=== PATIENT | female | born 1980 | race Caucasian/White ===

== ENCOUNTER 2017-11-15 08:23 | Emergency (ER) | payer BC ==
[2017-11-15 08:54] VITALS: BP 96/58
--- NOTE | 2017-11-15 09:20 | ED ---
HPI Cardiac - HPI Summary HPI Summary: 37 yr old female with the complaint of runny nose and sinus congestion for several days. At 430 am this morning she had nausea without vomiting. She got up this morning and through this morning has experienced the feeling of heaviness in the chest, sob. She denies having much of a cough. She says she aches all over. She denies smoking, denies past history, denies fever, chills, denies family history of any heart or lung issues. Denies travel recently. Denies swelling or pain in legs. - History of Current Complaint Chief Complaint: UCRespiratory Stated Complaint: BODY ACHES, HEAVY CHEST Time Seen by Provider: 11/15/17 09:08 Hx Last Menstrual Period: DOES NOT HAVE REG PERIODS- HAS MIRENA Pain Intensity: 7 - Allergy/Home Medications Allergies/Adverse Reactions: Allergies Allergy/AdvReac Type Severity Reaction Status Date / Time bacitracin Allergy Hives Verified 11/15/17 08:57 [From Neosporin ([id number])] cefaclor [From Ceclor] Allergy Hives Verified 11/15/17 08:58 neomycin Allergy Hives Verified 11/15/17 08:57 [From Neosporin ([id number])] polymyxin B Allergy Hives Verified 11/15/17 08:57 [From Neosporin ([id number])] Home Medications: Home Medications Amoxicillin PO (*) [Amoxicillin 500 MG CAP*] 500 mg PO TID 11/15/17 [History Confirmed 11/15/17] Docusate Sodium 100 mg PO DAILY 11/15/17 [History Confirmed 11/15/17] Vitamin TAB* 1 tab PO DAILY 11/15/17 [History Confirmed 11/15/17] PMH/Surg Hx/FS Hx/Imm Hx Previously Healthy: Yes Endocrine/Hematology History: Denies: Hx Diabetes Cardiovascular History: Denies: Hx Hypertension, Hx Pacemaker/ICD Sensory History: Denies: Hx Hearing Aid Psychiatric History: Denies: Hx Panic Disorder - Surgical History Surgery Procedure, Year, and Place: D&C x2 Infectious Disease History: No Infectious Disease History: Denies: Traveled Outside the [place] in Last 30 Days - Family History Known Family History: Positive: Unknown - Social History Alcohol Use: None Substance Use Type: Reports: None Smoking Status (MU): Never Smoked Tobacco Have You Smoked in the Last Year: No Review of Systems Constitutional: Negative Positive: Nasal Discharge Positive: Chest Pain Positive: Shortness Of Breath Positive: Nausea All Other Systems Reviewed And Are Negative: Yes Physical Exam Triage Information Reviewed: Yes Vital Signs On Initial Exam: Initial Vitals Temp Pulse Resp BP Pulse Ox 99.5 F 93 12 96/58 99 11/15/17 08:43 11/15/17 08:43 11/15/17 08:43 11/15/17 08:43 11/15/17 08:43 Vital Signs Reviewed: Yes Appearance: Positive: Well-Appearing, No Pain Distress Skin: Positive: Warm, Skin Color Reflects Adequate Perfusion Head/Face: Positive: Normal Head/Face Inspection Eyes: Positive: EOMI ENT: Positive: Pharynx normal, TMs normal Neck: Positive: Supple, Nontender Respiratory/Lung Sounds: Positive: Clear to Auscultation, Breath Sounds Present Cardiovascular: Positive: RRR. Negative: Murmur Abdomen Description: Positive: Nontender Musculoskeletal: Positive: Strength/ROM Intact. Negative: Edema Left, Edema Right Neurological: Positive: Sensory/Motor Intact, Alert, Oriented to Person Place, Time, CN Intact II-III Psychiatric: Positive: Normal - Keven Coma Scale Best Eye Response: 4 - Spontaneous Best Motor Response: 6 - Obeys Commands Best Verbal Response: 5 - Oriented Coma Scale Total: 15 Diagnostics - Vital Signs Vital Signs Temp Pulse Resp BP Pulse Ox 11/15/17 08:43 99.5 F 93 12 96/58 99 - Laboratory Lab Statement: Any lab studies that have been ordered have been reviewed, and results considered in the medical decision making process. - EKG 11/15/17 Cardiac Rate: NL EKG Rhythm: Sinus Rhythm ST Segment: Normal Ectopy: None EKG Interpretation: No STEMI Disposition - Course Course Of Treatment: 37 yr old female who is 14 weeks with chest heaviness and SOB. I have recommended she go by ambulance to the ER. She wants to drive herself She is signing out AMA with risks understood. - Diagnoses Provider Diagnoses: Chest pain, Shortness of breath Discharge - Discharge Plan Condition: Good Disposition: AGAINST MEDICAL ADVICE Referrals: Non Staff,Doctor [Primary Care Provider] -
== END 2017-11-15 09:45 | disposition left against medical advice (07) ==
LOC: UCCORT 08:23
DX: O26.892 Other specified pregnancy related conditions, second trimester (principal); Z3A.14 14 weeks gestation of pregnancy; R07.9 Chest pain, unspecified; R06.02 Shortness of breath; Z88.1 Allergy status to other antibiotic agents; Z88.8 Allergy status to other drugs, medicaments and biological substances
CPT/HCPCS: 93005; 99212; G0463